=== PATIENT | female | born 1995 | race Caucasian/White ===

== ENCOUNTER → 2023-08-06 09:49 | Outpatient (REF) | payer OTHER, SELFPAY | LOC: RAD 09:49 | PROVIDERS: ATTENDING PHYSICIAN Urology; FAMILY PHYSICIAN Family Medicine | DX: N20.0 Calculus of kidney (principal) | CPT/HCPCS: 76770 ==

== ENCOUNTER 2023-09-03 06:17 | Day surgery (SDC) | payer OTHER, SELFPAY ==
[2023-09-03] VITALS (9 sets, daily range): BP systolic 117–151; BP diastolic 73–101; BMI 22.7
[2023-09-03] MEDS: NORMOSOL-R 1000 IV (12:02)
[2023-09-03] MEDS: DEMEROL 12.5 MG IV (14:26)
[2023-09-03] MEDS: ZOFRAN 4 MG IV (14:47)
[2023-09-03] MEDS: Pyridium 200 MG PO (15:27)
--- NOTE | 2023-09-03 15:35 | PTCARENOTE ---
Addendum Dr Pritchett saw patient in PACU , oral temp was 100.3, per DR Pritchett continue with discharge to Phase 2. Patient comfortable .
[2023-09-08 19:58] LABS: Stone Analysis Mass 46 mg
== END 2023-09-03 16:35 | disposition home or self-care (01) ==
LOC: SDS 06:17
PROVIDERS: ATTENDING PHYSICIAN Urology
DX: N13.2 Hydronephrosis with renal and ureteral calculous obstruction (principal)
CPT/HCPCS: 52356; 74420; 76000; 82365; C1758; C1769; C2617

== ENCOUNTER → 2024-03-30 16:01 | Outpatient (REF) | payer OTHER, SELFPAY | LOC: PNTC 16:01 | PROVIDERS: ATTENDING PHYSICIAN Nurse Practitioner Family | DX: O36.80X0 Pregnancy with inconclusive fetal viability, not applicable or unspecified (principal); Z34.91 Encounter for supervision of normal pregnancy, unspecified, first trimester | CPT/HCPCS: 76801 ==

== ENCOUNTER → 2024-05-02 14:57 | Outpatient (REF) | payer OTHER, SELFPAY | LOC: PNTC 14:57 | PROVIDERS: ATTENDING PHYSICIAN Student in an Organized Health Care Education/Training Program | DX: Z36.0 Encounter for antenatal screening for chromosomal anomalies (principal); Z36.82 Encounter for antenatal screening for nuchal translucency; O42.913 Preterm premature rupture of membranes, unspecified as to length of time between rupture and onset of labor, third trimester; O44.30 Partial placenta previa with hemorrhage, unspecified trimester | CPT/HCPCS: 76801; 76813 ==

== ENCOUNTER → 2024-06-06 15:51 | Outpatient (REF) | payer OTHER, SELFPAY | LOC: PNTC 15:51 | PROVIDERS: ATTENDING PHYSICIAN Student in an Organized Health Care Education/Training Program | DX: Z36.86 Encounter for antenatal screening for cervical length (principal) | CPT/HCPCS: 76815; 76817 ==

== ENCOUNTER → 2024-06-20 16:30 | Outpatient (REF) | payer OTHER, SELFPAY | LOC: PNTC 16:30 | PROVIDERS: ATTENDING PHYSICIAN Student in an Organized Health Care Education/Training Program | DX: O42.913 Preterm premature rupture of membranes, unspecified as to length of time between rupture and onset of labor, third trimester (principal); O44.30 Partial placenta previa with hemorrhage, unspecified trimester | CPT/HCPCS: 76805; 76817 ==

== ENCOUNTER → 2024-07-04 15:55 | Outpatient (REF) | payer OTHER, SELFPAY | LOC: PNTC 15:55 | PROVIDERS: ATTENDING PHYSICIAN Student in an Organized Health Care Education/Training Program | DX: Z36.86 Encounter for antenatal screening for cervical length (principal) | CPT/HCPCS: 76815; 76817 ==

== ENCOUNTER → 2024-07-18 16:22 | Outpatient (REF) | payer OTHER, SELFPAY | LOC: PNTC 16:22 | PROVIDERS: ATTENDING PHYSICIAN Student in an Organized Health Care Education/Training Program | DX: Z36.86 Encounter for antenatal screening for cervical length (principal) | CPT/HCPCS: 76816; 76817 ==

== ENCOUNTER → 2024-08-15 13:53 | Outpatient (REF) | payer OTHER, SELFPAY | LOC: PNTC 13:53 | PROVIDERS: ATTENDING PHYSICIAN Obstetrics & Gynecology | DX: Z34.92 Encounter for supervision of normal pregnancy, unspecified, second trimester (principal) | CPT/HCPCS: 36415; 86850; 86900; 86901; 96372; J2790 ==

== ENCOUNTER → 2024-09-12 17:04 | Outpatient (REF) | payer OTHER, SELFPAY | LOC: PNTC 17:04 | PROVIDERS: ATTENDING PHYSICIAN Student in an Organized Health Care Education/Training Program | DX: O42.90 Premature rupture of membranes, unspecified as to length of time between rupture and onset of labor, unspecified weeks of gestation (principal); O44.03 Complete placenta previa NOS or without hemorrhage, third trimester | CPT/HCPCS: 76816 ==

== ENCOUNTER → 2024-11-01 14:38 | Outpatient (REF) | payer OTHER, SELFPAY | LOC: PNTC 14:38 | PROVIDERS: ATTENDING PHYSICIAN Obstetrics & Gynecology | DX: O36.8190 Decreased fetal movements, unspecified trimester, not applicable or unspecified (principal) | CPT/HCPCS: 59025; 76815 ==

== ENCOUNTER 2024-11-04 08:20 | Inpatient (IN) | payer OTHER, SELFPAY ==
[2024-11-04 08:29] VITALS: BP 106/72; BMI 28.7
[2024-11-04 09:33] LABS: % Basophils 0.3 % (0-2); % Eosinophils 0.2 % (0-6); % Immature Granulocytes 0.8 % (0-0.5); % Monocytes 6.9 % (1.7-9.3); % Neutrophils 78.8 % (42.2-75.2); Absolute Basophils 0.1 10^3/uL (0-0.2); Absolute Immature Granulocytes 0.1 10^3/uL (0-0.05); Absolute Lymphocytes 1.9 10^3/uL (1.2-3.4); Absolute Neutrophils 11.4 10^3/uL (1.4-6.5); Hematocrit 37.2 % (37.0-47.0); Hemoglobin 12.7 g/dL (12.0-16.0); Mean Corp Hgb Conc. 34.1 g/dL (33.0-37.0); Mean Corpuscular Hgb 29.4 pg (27.0-31.0); Mean Corpuscular Volume 86.1 fL (81.0-99.0); Mean Platelet Volume 10.3 fL (7.4-10.4); Nucleated Red Blood Cells % 0 %; Platelet Count 280 10^3/uL (130-400); Red Blood Cell Count 4.32 10^6/uL (4.20-5.40); Red Cell Dist. Width 13.1 % (11.5-14.5); White Blood Cell Count 14.4 10^3/uL (4.8-10.8)
[2024-11-04] MEDS: FENTANYL/BUPIVACAINE 100 EPIDURAL (10:00)
[2024-11-04] MEDS: SUBLIMAZE 100 MCG EPIDURAL (10:00)
[2024-11-04] MEDS: PITOCIN 30 UNITS/NSS 500 ML IV (14:23)
[2024-11-04] MEDS: METHERGINE INJECTION 0.2 MG IM (17:10)
[2024-11-04] MEDS: TRANEXAMIC ACID 100 IV (17:15)
[2024-11-04] MEDS: ZOFRAN 4 MG IV (18:20)
[2024-11-04] MEDS: ANCEF 10 IV (18:48)
[2024-11-05] MEDS: ANCEF 5 IV ×2 (02:32→10:51)
[2024-11-05] MEDS: MOTRIN 600 MG PO ×2 (06:11→18:13)
[2024-11-05 06:23] LABS: Hemoglobin 10.4 g/dL (12.0-16.0)
[2024-11-05] MEDS: PRENATAL PLUS 1 TABLET PO (09:12)
[2024-11-05] MEDS: SENOKOT-S 1 TABLET PO (09:13)
[2024-11-05] MEDS: ANCEF IV ×2 (19:01→19:08)
[2024-11-06] MEDS: MOTRIN 600 MG PO (01:40)
[2024-11-06] MEDS: PRENATAL PLUS 1 TABLET PO (09:25)
[2024-11-06] MEDS: SENOKOT-S 1 TABLET PO (09:25)
[2024-11-07 14:39] LABS: Syphilis/T. pallidum Ab Reflex Negative (Negative)
== END 2024-11-06 10:47 | disposition home or self-care (01) | DRG 768 ==
LOC: LDRP 08:20
PROVIDERS: Obstetrics & Gynecology; ADMITTING PHYSICIAN Obstetrics & Gynecology
PROC: 10E0XZZ Delivery of Products of Conception, External Approach (ICD-10-PCS; 2024-11-04)
PROC: 0W3R7ZZ Control Bleeding in Genitourinary Tract, Via Natural or Artificial Opening (ICD-10-PCS; 2024-11-04)
PROC: 3E0334Z Introduction of Serum, Toxoid and Vaccine into Peripheral Vein, Percutaneous Approach (ICD-10-PCS; 2024-11-04)
PROC: 0HQ9XZZ Repair Perineum Skin, External Approach (ICD-10-PCS; 2024-11-04)
DX: O26.893 Other specified pregnancy related conditions, third trimester (principal); Z37.0 Single live birth; Z67.41 Type O blood, Rh negative; Z3A.39 39 weeks gestation of pregnancy; O70.0 First degree perineal laceration during delivery; O72.1 Other immediate postpartum hemorrhage
CPT/HCPCS: 85014; 85018; 85025; 86780; 86850; 86900; 86901